=== PATIENT | female | born 1945 | race Caucasian/White ===

== ENCOUNTER 2018-08-04 10:49 | Emergency (ER) | payer MEDICARE, BC ==
[~2018-08-04] VITALS: Ht 167.6 cm; Wt 73.0 kg
[2018-08-04 13:10] VITALS: BP 121/82
== END 2018-08-04 13:12 | disposition home or self-care (01) ==
LOC: ER 10:50
DX: S80.02XA Contusion of left knee, initial encounter (principal); G89.29 Other chronic pain; W22.8XXA Striking against or struck by other objects, initial encounter; Y93.89 Activity, other specified; Y92.89 Other specified places as the place of occurrence of the external cause; Y99.8 Other external cause status
CPT/HCPCS: 73564; 99284

== ENCOUNTER 2019-06-03 17:20 | Emergency (ER) | payer MEDICARE, BC ==
[~2019-06-03] VITALS: Ht 167.6 cm; Wt 68.0 kg
[2019-06-03] MEDS ORDERED: LEVO75TA7 PO (18:49)
[2019-06-03] MEDS ORDERED: HYDR-4070 PO (18:49)
[2019-06-03] MEDS ORDERED: SERT50TA10 PO (18:49)
[2019-06-03 22:15] VITALS: BP 112/78
== END 2019-06-03 21:17 | disposition home or self-care (01) ==
LOC: ER 17:21
DX: R04.0 Epistaxis (principal); I10 Essential (primary) hypertension; G89.29 Other chronic pain; F10.99 Alcohol use, unspecified with unspecified alcohol-induced disorder; Z85.3 Personal history of malignant neoplasm of breast; Z79.899 Other long term (current) drug therapy; Y90.9 Presence of alcohol in blood, level not specified
CPT/HCPCS: 99283

== ENCOUNTER 2021-04-10 16:00 | Emergency (ER) | payer MEDICARE, BC ==
[~2021-04-10] VITALS: Ht 167.6 cm; Wt 73.1 kg
[~2021-04-10 16:00] MED LIST: HYDR-4070 PO; LEVO75TA7 PO; SERT-433 PO
[2021-04-10 20:42] VITALS: BP 120/80
== END 2021-04-10 22:28 | disposition home or self-care (01) ==
LOC: ER 16:00
DX: S00.83XA Contusion of other part of head, initial encounter (principal); I12.9 Hypertensive chronic kidney disease with stage 1 through stage 4 chronic kidney disease, or unspecified chronic kidney disease; N18.9 Chronic kidney disease, unspecified; G50.0 Trigeminal neuralgia; Z86.19 Personal history of other infectious and parasitic diseases; Z79.01 Long term (current) use of anticoagulants; Z85.3 Personal history of malignant neoplasm of breast; Z72.89 Other problems related to lifestyle; Z79.899 Other long term (current) drug therapy; W06.XXXA Fall from bed, initial encounter; Y93.89 Activity, other specified; Y92.89 Other specified places as the place of occurrence of the external cause; Y99.8 Other external cause status
CPT/HCPCS: 70450; 70486; 99285

== ENCOUNTER 2022-08-02 17:54 | Emergency (ER) | payer MEDICARE, BC ==
[~2022-08-02] VITALS: Ht 167.6 cm; Wt 65.0 kg
[~2022-08-02 17:54] MED LIST changes: +APIX5TAB3 PO; +CARB200T8 PO; +ESCI20TA39 PO; +FLUO40CA PO; -HYDR-4070 PO; +LISI20TA28 PO; +OXYC1TAB17 PO; +PENT400T17 PO; -SERT-433 PO
[2022-08-02 18:06] VITALS: BP 118/75
[2022-08-02 18:13] LABS: BASOPHILS % (AUTO) 0.5 % (0-1); EOSINOPHILS # (AUTO) 0.1 X10'3 (0-0.9); EOSINOPHILS % (AUTO) 1.9 % (0-6); HEMATOCRIT 42.9 % (35.0-45.0); HEMOGLOBIN 14.2 g/dl (12.0-16.0); LYMPHOCYTES # (AUTO) 1.7 X10'3 (1.1-4.8); LYMPHOCYTES % (AUTO) 29.9 % (21-51); MEAN CORPUSCULAR HEMOGLOBIN 31.3 PG (27.0-31.0); MEAN CORPUSCULAR VOLUME 94.7 FL (78-98); MEAN PLATELET VOLUME 9.4 FL (7.4-10.4); MONOCYTES # (AUTO) 0.7 X10'3 (0-0.9); MONOCYTES % (AUTO) 11.8 % (2-12); NEUTROPHILS # (AUTO) 3.2 X10'3 (1.8-7.7); NEUTROPHILS % (AUTO) 55.9 % (42-75); PLATELET COUNT 145 X10'3 (140-440); RED BLOOD COUNT 4.53 X10'6 (4.20-5.60); RED CELL DISTRIBUTION WIDTH 13.3 % (11.5-14.5); WHITE BLOOD COUNT 5.7 X10'3 (4.5-11.0)
[2022-08-02] MEDS ORDERED: LORazepam 1 MG tablet PO ONE (18:20)
[2022-08-02 18:29] LABS: ALANINE AMINOTRANSFERASE 24 U/L (12-78); ALBUMIN 3.7 G/DL (3.4-5.0); ALBUMIN/GLOBULIN RATIO 1.1 (1.1-1.5); ALKALINE PHOSPHATASE 85 IU/L (46-116); ANION GAP 10 (8-16); ASPARTATE AMINO TRANSFERASE 27 U/L (10-37); BILIRUBIN,TOTAL 0.3 MG/DL (0.1-1.0); BLOOD UREA NITROGEN 30 MG/DL (7-18); BUN/CREATININE RATIO 30.6 (6.6-38.0); CALCIUM 9.5 MG/DL (8.5-10.1); CHLORIDE 105 MMOL/L (99-107); CREATININE 0.98 MG/DL (0.40-0.90); GLUCOSE 86 MG/DL (70-104); POTASSIUM 4.5 MMOL/L (3.5-5.1); SODIUM 140 MMOL/L (135-145); TOTAL CARBON DIOXIDE 25.1 MMOL/L (24-32); TOTAL PROTEIN 7.2 G/DL (6.4-8.2); eGFR 55 ML/MIN
[2022-08-02 18:36] LABS: MAGNESIUM 2.4 MG/DL (1.5-2.4)
[2022-08-02 19:16] LABS: D-DIMER < 0.19 MG/L FEU (0-0.50)
== END 2022-08-02 19:55 | disposition home or self-care (01) ==
LOC: ER 17:55
DX: R07.89 Other chest pain (principal); I12.0 Hypertensive chronic kidney disease with stage 5 chronic kidney disease or end stage renal disease; N18.9 Chronic kidney disease, unspecified
CPT/HCPCS: 36415; 71045; 80053; 83735; 83880; 84484; 85025; 85379; 93005; 99285

== ENCOUNTER 2022-08-03 07:12 | Day surgery (SDC) | payer MEDICARE, BC ==
[2022-07-27 14:19] LABS: BASOPHILS % (AUTO) 0.9 % (0-1); EOSINOPHILS # (AUTO) 0.1 X10'3 (0-0.9); EOSINOPHILS % (AUTO) 1.7 % (0-6); LYMPHOCYTES % (AUTO) 17.8 % (21-51); MEAN CORPUSCULAR HEMOGLOBIN 31.8 PG (27.0-31.0); MEAN CORPUSCULAR HGB CONC 33.5 g/dL (33.0-36.5); MEAN PLATELET VOLUME 9.9 FL (7.4-10.4); MONOCYTES # (AUTO) 0.6 X10'3 (0-0.9); MONOCYTES % (AUTO) 11.6 % (2-12); NEUTROPHILS # (AUTO) 3.8 X10'3 (1.8-7.7); PRE OP HEMATOCRIT 41.4 % (35.0-45.0); PRE OP HEMOGLOBIN 13.8 g/dL (12.0-16.0); PRE OP PLATELET COUNT 132 X10'3 (140-440); RED BLOOD COUNT 4.35 X10'6 (4.20-5.60); RED CELL DISTRIBUTION WIDTH 13.4 % (11.5-14.5)
[2022-07-27 14:39] LABS: ALBUMIN 3.7 G/DL (3.4-5.0); ALBUMIN/GLOBULIN RATIO 1.1 (1.1-1.5); ALKALINE PHOSPHATASE 85 IU/L (46-116); BLOOD UREA NITROGEN 26 MG/DL (7-18); BUN/CREATININE RATIO 16.8 (6.6-38.0); CALCIUM 9.2 MG/DL (8.5-10.1); CHLORIDE 103 MMOL/L (99-107); CREATININE 1.55 MG/DL (0.40-0.90); PRE OP ALT 22 U/L (30-65); PRE OP ANION GAP 8 (8-16); PRE OP AST 26 U/L (10-37); PRE OP BILIRUB, TOTAL 0.3 MG/DL (0.0-1.0); PRE OP GLUCOSE 82 MG/DL (70-104); PRE OP POTASSIUM 4.5 MMOL/L (3.4-5.1); PRE OP SODIUM 139 MMOL/L (135-145); TOTAL CARBON DIOXIDE 28.3 MMOL/L (24-32); eGFR 33 ML/MIN
[~2022-08-03] VITALS: Ht 167.6 cm; Wt 62.8 kg
[2022-08-03] VITALS (7 sets, daily range): BP systolic 103–135; BP diastolic 74–94
[~2022-08-03 07:12] MED LIST changes: +ceFAZolin inj. 2,000 MG in dextrose 5%-water 100 ML IV ONE; +famotidine 20mg tablet PO ONE; +ringers solution, lacted 1,000 ML IV SCH
[2022-08-03] MEDS ORDERED: BUPIVAcaine 0.5% inj/PF 30 ML ONE (08:07)
[2022-08-03] MEDS ORDERED: labetalol 20mg/4ml (5mg/ml) syringe IV PRN (08:10)
[2022-08-03] MEDS ORDERED: ringers solution, lacted 1,000 ML IV SCH (08:10)
[2022-08-03] MEDS ORDERED: morphine 4 MG/ML inj SYRINge IV PRN (08:10)
[2022-08-03] MEDS ORDERED: morphine 2 MG/ML inj. syringe IV PRN (08:10)
[2022-08-03] MEDS ORDERED: ondansetron/PF 4mg/2ml inj IV PRN (08:10)
[2022-08-03] MEDS ORDERED: fentaNYL/PF 50MCG/1 ML 2ML syringe ONE (10:01)
[2022-08-03] MEDS ORDERED: midazolam 1 mg/ML 2ml injection ONE (10:01)
[2022-08-03] MEDS ORDERED: BUPIVAcaine 0.5% inj/PF 30 ml vial IJ ONE (10:16)
[2022-08-03] MEDS ORDERED: LIDOcaine 0.5% (5mg/ml) 50ml vial ONE (10:19)
--- NOTE | 2022-08-03 10:47 | NUR ---
Received from OR via , accompanied by Anesthesiologist THA AND OR NURSE and report given by Anesthesiolgist. PT IS DROWSY YET ABLE TO RESPOND TO VERBAL STIMULI. DENIES PAIN OR DISCOMFORT. RT WRIST WRAPPED WITH GAUZE AND FLOR BANDAGE;CDI. 20G TO LT WRIST. VSS Addendum: 08/03/22 at 1110 by Joselin Torres RN Amended: Links added.
--- NOTE | 2022-08-03 11:47 | NUR ---
I HAVE REVIEWED D/C INSTRUCTIONS WITH PATIENT AND THEY HAVE VERBALIZED UNDERSTANDING OF INSTRUCTIONS. PATIENT D/C HOME WITH ALL BELONGINGS AND FAMILY GAVE TRANSPORT Addendum: 08/03/22 at 1253 by Joselin Torres RN Amended: Links added.
== END 2022-08-03 11:47 | disposition home or self-care (01) ==
LOC: PAS 07:12
PROVIDERS: ATTEND Orthopaedic Surgery Hand Surgery
DX: M72.0 Palmar fascial fibromatosis [Dupuytren] (principal); M65.341 Trigger finger, right ring finger; M16.12 Unilateral primary osteoarthritis, left hip; I12.9 Hypertensive chronic kidney disease with stage 1 through stage 4 chronic kidney disease, or unspecified chronic kidney disease; N18.9 Chronic kidney disease, unspecified; F43.10 Post-traumatic stress disorder, unspecified; B19.20 Unspecified viral hepatitis C without hepatic coma; Z85.3 Personal history of malignant neoplasm of breast; Z98.890 Other specified postprocedural states; Z87.891 Personal history of nicotine dependence; Z90.49 Acquired absence of other specified parts of digestive tract; Z79.01 Long term (current) use of anticoagulants; Z79.899 Other long term (current) drug therapy; Z87.442 Personal history of urinary calculi
CPT/HCPCS: 26055; 26123; 36415; 80053; 82948; 85025; 93005; J0690; J2250; J3010; J3490; J7030; J7060; J7120; S0020; Z7506; Z7512; A4215; A6449

== ENCOUNTER 2023-07-13 02:08 | Emergency (ER) | payer MEDICARE, BC ==
[~2023-07-13] VITALS: Ht 167.6 cm; Wt 60.9 kg
[~2023-07-13 02:08] MED LIST changes: -ceFAZolin inj. 2,000 MG in dextrose 5%-water 100 ML IV ONE; -famotidine 20mg tablet PO ONE; -ringers solution, lacted 1,000 ML IV SCH
[2023-07-13] MEDS ORDERED: ketorolac trometh inj. 60 MG/2 ML VIAL IM ONE (03:50)
[2023-07-13] MEDS ORDERED: acetaminophen 325mg tablet PO ONE (03:50)
[2023-07-13 04:57] VITALS: BP 149/97; PULSE 68; RESP 16; TEMP 98.4; O2SAT 98
== END 2023-07-13 04:58 | disposition home or self-care (01) ==
LOC: ER 02:09
DX: M79.604 Pain in right leg (principal); N39.0 Urinary tract infection, site not specified; Z79.899 Other long term (current) drug therapy
CPT/HCPCS: 96372; 99283; J1885

== ENCOUNTER 2024-03-11 16:50 | Emergency (ER) | payer BC, MEDICARE ==
[~2024-03-11] VITALS: Ht 167.6 cm; Wt 60.0 kg
[2024-03-11 16:58] VITALS: TEMP 97.9
[2024-03-11 18:41] LABS: ALBUMIN 3.2 G/DL (3.4-5.0); ANION GAP 7 (8-16); BLOOD UREA NITROGEN 18 MG/DL (7-18); BUN/CREATININE RATIO 18.8 (10.0-20.0); CHLORIDE 107 MMOL/L (99-107); CREATININE 0.96 MG/DL (0.40-0.90); GLUCOSE 88 MG/DL (70-104); POTASSIUM 4.4 MMOL/L (3.5-5.1); SODIUM 143 MMOL/L (135-145); TOTAL CARBON DIOXIDE 29.1 MMOL/L (24-32); eCRCL 46 ML/MIN; eGFR 56 ML/MIN
[2024-03-11 18:42] LABS: BASOPHILS % (AUTO) 0.5 % (0-1); EOSINOPHILS # (AUTO) 0.2 X10'3 (0-0.9); EOSINOPHILS % (AUTO) 4.3 % (0-6); HEMATOCRIT 40.4 % (35.0-45.0); HEMOGLOBIN 13.4 g/dl (12.0-16.0); LYMPHOCYTES # (AUTO) 1.1 X10'3 (1.1-4.8); MEAN CORPUSCULAR HEMOGLOBIN 31.6 PG (27.0-31.0); MEAN CORPUSCULAR HGB CONC 33.2 g/dL (33.0-36.5); MEAN PLATELET VOLUME 9.8 FL (7.4-10.4); MONOCYTES # (AUTO) 0.4 X10'3 (0-0.9); MONOCYTES % (AUTO) 11.2 % (2-12); NEUTROPHILS # (AUTO) 2.1 X10'3 (1.8-7.7); PLATELET COUNT 99 X10'3 (140-440); RED BLOOD COUNT 4.25 X10'6 (4.20-5.60); RED CELL DISTRIBUTION WIDTH 13.5 % (11.5-14.5); WHITE BLOOD COUNT 3.8 X10'3 (4.5-11.0)
[2024-03-11] MEDS: normal saline 1000ml 1,000 ML IV ONE (18:48)
[2024-03-11 19:42] VITALS: BP 138/109; PULSE 72; RESP 16; O2SAT 99
== END 2024-03-11 19:44 | disposition home or self-care (01) ==
LOC: ER 16:51
DX: G50.0 Trigeminal neuralgia (principal); I10 Essential (primary) hypertension; E86.0 Dehydration; Z79.899 Other long term (current) drug therapy
CPT/HCPCS: 80048; 85025; 96360; 99283; J7030

== ENCOUNTER 2024-06-26 12:58 | Emergency (ER) | payer BC ==
[~2024-06-26] VITALS: Ht 170.2 cm; Wt 61.2 kg
[2024-06-26 13:14] VITALS: BP 101/69; PULSE 93; TEMP 98.3; O2SAT 97
[2024-06-26] MEDS ORDERED: HYDR-3973 PO (14:10)
[2024-06-26 14:18] VITALS: RESP 16
[2024-06-26] MEDS: HYDROcodone/acetaminophen 10/325mg tab PO ONE (14:18)
== END 2024-06-26 14:29 | disposition home or self-care (01) ==
LOC: ER 12:59
DX: G50.0 Trigeminal neuralgia (principal); I10 Essential (primary) hypertension; G89.29 Other chronic pain; M54.9 Dorsalgia, unspecified; Z85.3 Personal history of malignant neoplasm of breast; Z79.899 Other long term (current) drug therapy; Z72.89 Other problems related to lifestyle
CPT/HCPCS: 99283